=== PATIENT | male | born 1935 | race Caucasian/White ===

== ENCOUNTER 2017-11-08 10:28 | Outpatient (CLI) | payer MEDICARE, SELFPAY | END 2017-11-08 10:29 | PROVIDERS: PCP Physician Assistant Medical; Visit Provider Orthopaedic Surgery | DX: M17.0 Bilateral primary osteoarthritis of knee (principal) | CPT/HCPCS: 20610; 99213; J1040 ==

== ENCOUNTER → 2018-03-02 10:39 | Outpatient (BNVA) | payer MEDICARE, SELFPAY | PROVIDERS: PCP Physician Assistant Medical; Visit Provider Orthopaedic Surgery | DX: M17.0 Bilateral primary osteoarthritis of knee (principal) | CPT/HCPCS: 20610; 99211; 99213; J7327 ==

== ENCOUNTER → 2018-08-29 10:43 | Outpatient (BNVA) | payer MEDICARE, SELFPAY | PROVIDERS: PCP Physician Assistant Medical; Referring Provider Physician Assistant Medical; Visit Provider Orthopaedic Surgery | DX: M25.561 Pain in right knee (principal); M25.562 Pain in left knee; M17.11 Unilateral primary osteoarthritis, right knee; M17.12 Unilateral primary osteoarthritis, left knee; E66.9 Obesity, unspecified | CPT/HCPCS: 20610; 99211; J7327 ==

== ENCOUNTER → 2019-03-01 10:53 | Outpatient (BNVA) | payer MEDICARE, SELFPAY | PROVIDERS: PCP Physician Assistant Medical; Referring Provider Physician Assistant Medical; Visit Provider Student in an Organized Health Care Education/Training Program | DX: M17.11 Unilateral primary osteoarthritis, right knee (principal); M17.12 Unilateral primary osteoarthritis, left knee | CPT/HCPCS: 20610; 99214; J7318 ==

== ENCOUNTER → 2019-11-19 12:45 | Outpatient (BNVA) | payer MEDICARE, SELFPAY | PROVIDERS: PCP Physician Assistant Medical; Referring Provider Physician Assistant Medical; Visit Provider Student in an Organized Health Care Education/Training Program | DX: M17.0 Bilateral primary osteoarthritis of knee (principal); Z96.642 Presence of left artificial hip joint | CPT/HCPCS: 99212 ==